=== PATIENT | male | born 1970 | race American Indian/Alaskan Native ===

== ENCOUNTER 2021-04-23 10:12 | Inpatient (IN) | payer OTHER, MEDICAID ==
[2021-04-23 11:47] LABS: Basophils % (Auto) 0.4 % (0.0-1.8); Eosinophils # (Auto) 0.3 K/mm3 (0.0-0.4); Eosinophils % (Auto) 2.7 % (0.0-4.3); Hematocrit 34.8 % (35.5-45.6); Hemoglobin 11.9 gm/dl (11.8-15.2); Lymphocytes # (Auto) 2.3 K/mm3 (1.2-5.4); Lymphocytes % (Auto) 20.4 % (13.4-35.0); Mean Corpuscular HGB Conc 34 % (32-34); Mean Corpuscular Volume 87 fl (84-94); Monocytes # (Auto) 0.9 K/mm3 (0.0-0.8); Monocytes % (Auto) 8.2 % (0.0-7.3); Platelet Count 255 K/mm3 (140-440); Red Blood Count 4.01 M/mm3 (3.65-5.03); Red Cell Distribution Width 18.5 % (13.2-15.2)
[2021-04-23 12:18] LABS: Albumin 4.7 g/dL (3.9-5); Calcium 8.9 mg/dL (8.4-10.2)
[2021-04-23] MEDS ORDERED: ASPIRIN 81 MG TAB CHEW PO ONE (12:31)
[2021-04-23 13:16] LABS: Chol/HDL Ratio 4.34 %
[2021-04-23] MEDS ORDERED: FAMOTIDINE 20 MG/2 ML INJ IV ONE (13:25)
--- NOTE | 2021-04-23 13:38 | Emergency Department Report ---
- General Chief complaint: Weakness Stated complaint: GENERAL WEAKNESS PUI?: No Source: EMS Mode of arrival: Stretcher Limitations: No Limitations - History of Present Illness Initial comments: Patient is a 50-year-old male history of end-stage renal disease on hemodialysis who presents emergency department with complaint of generalized weakness. Patient states that he recently had dialysis and during his dialysis session he became weak. He also had an episode of chest pain as well as shortness of breath. He denies any focal weakness. Severity scale (0 -10): 0 - Related Data Allergies Allergy/AdvReac Type Severity Reaction Status Date / Time acetaminophen [From Tylenol] Allergy Hives Verified 04/23/21 10:45 JHON Inhibitors AdvReac Hives Verified 04/23/21 10:46 ED Review of Systems ROS: Stated complaint: GENERAL WEAKNESS Other details as noted in HPI Constitutional: malaise Eyes: denies: eye pain ENT: denies: throat pain Respiratory: shortness of breath. denies: cough Cardiovascular: chest pain Endocrine: no symptoms reported Gastrointestinal: denies: abdominal pain, nausea, diarrhea Genitourinary: denies: urgency, dysuria Musculoskeletal: denies: back pain, joint swelling, arthralgia Skin: denies: rash, lesions Neurological: denies: headache, weakness, paresthesias Psychiatric: denies: anxiety, depression Hematological/Lymphatic: denies: easy bleeding, easy bruising ED Past Medical Hx - Past Medical History Hx Hypertension: Yes Hx Diabetes: Yes Hx Renal Disease: Yes (ESRD) Additional medical history: dialysis - Social History Smoking Status: Never Smoker Substance Use Type: None ED Physical Exam - General Limitations: No Limitations General appearance: alert, in no apparent distress - Head Head exam: Present: atraumatic, normocephalic - Eye Eye exam: Present: normal appearance - ENT ENT exam: Present: mucous membranes moist - Neck Neck exam: Present: normal inspection - Respiratory Respiratory exam: Present: normal lung sounds bilaterally. Absent: respiratory distress - Cardiovascular Cardiovascular Exam: Present: regular rate, normal rhythm, other (Patient's hemodialysis catheter noted and left chest wall). Absent: systolic murmur, diastolic murmur, rubs, gallop - GI/Abdominal GI/Abdominal exam: Present: soft, normal bowel sounds - Rectal Rectal exam: Present: deferred - Extremities Exam Extremities exam: Present: normal inspection - Back Exam Back exam: Present: normal inspection - Neurological Exam Neurological exam: Present: alert, oriented X3 - Psychiatric Psychiatric exam: Present: normal affect, normal mood - Skin Skin exam: Present: warm, dry, intact, normal color. Absent: rash ED Course Vital Signs 04/23/21 04/23/21 04/23/21 11:22 11:23 11:31 Pulse Rate 76 75 82 Respiratory 10 L 16 15 Rate Blood Pressure 120/69 Blood Pressure 118/62 [Right] O2 Sat by Pulse 86 95 96 Oximetry 04/23/21 04/23/21 04/23/21 11:45 12:01 12:15 Pulse Rate 75 80 71 Respiratory 13 17 12 Rate Blood Pressure 120/69 122/80 122/80 Blood Pressure [Right] O2 Sat by Pulse 95 96 96 Oximetry 04/23/21 04/23/21 04/23/21 12:31 12:45 13:01 Pulse Rate 91 H 73 73 Respiratory 13 13 15 Rate Blood Pressure 136/75 136/75 142/85 Blood Pressure [Right] O2 Sat by Pulse 97 97 Oximetry 04/23/21 04/23/21 04/23/21 13:15 13:31 13:45 Pulse Rate 77 84 77 Respiratory 13 39 H 17 Rate Blood Pressure 142/85 134/81 134/81 Blood Pressure [Right] O2 Sat by Pulse 97 98 Oximetry 04/23/21 04/23/21 04/23/21 14:01 14:15 14:31 Pulse Rate 75 75 74 Respiratory 13 18 18 Rate Blood Pressure 134/81 128/77 137/80 Blood Pressure [Right] O2 Sat by Pulse 99 99 Oximetry 04/23/21 04/23/21 04/23/21 14:49 15:01 15:15 Pulse Rate 71 70 73 Respiratory 17 12 12 Rate Blood Pressure 137/80 122/72 122/72 Blood Pressure [Right] O2 Sat by Pulse 96 95 94 Oximetry 04/23/21 04/23/21 04/23/21 15:31 15:45 16:01 Pulse Rate 74 71 80 Respiratory 12 13 9 L Rate Blood Pressure 119/61 119/61 128/51 Blood Pressure [Right] O2 Sat by Pulse 96 95 95 Oximetry 04/23/21 04/23/21 04/23/21 16:15 16:31 16:45 Pulse Rate 72 75 75 Respiratory 13 15 15 Rate Blood Pressure 128/51 110/59 110/59 Blood Pressure [Right] O2 Sat by Pulse 96 97 97 Oximetry 04/23/21 04/23/21 04/23/21 16:49 16:52 17:01 Pulse Rate 74 75 Respiratory 13 Rate Blood Pressure 134/70 Blood Pressure [Right] O2 Sat by Pulse 96 99 Oximetry 04/23/21 04/23/21 04/23/21 17:15 17:31 17:45 Pulse Rate 75 77 77 Respiratory 12 16 17 Rate Blood Pressure 134/70 127/79 127/79 Blood Pressure [Right] O2 Sat by Pulse 97 98 97 Oximetry 04/23/21 04/23/21 04/23/21 18:01 18:15 18:31 Pulse Rate 78 77 68 Respiratory 17 17 12 Rate Blood Pressure 124/57 124/57 113/65 Blood Pressure [Right] O2 Sat by Pulse 96 98 97 Oximetry 04/23/21 04/23/21 04/23/21 18:45 19:01 19:15 Pulse Rate 76 76 80 Respiratory 11 L 19 18 Rate Blood Pressure 113/65 149/50 149/50 Blood Pressure [Right] O2 Sat by Pulse 97 97 97 Oximetry 04/23/21 04/23/21 04/23/21 19:31 19:41 19:51 Pulse Rate 77 75 78 Respiratory 20 14 17 Rate Blood Pressure 136/50 136/50 136/50 Blood Pressure [Right] O2 Sat by Pulse 96 97 98 Oximetry 04/23/21 04/23/21 04/23/21 20:01 20:11 20:21 Pulse Rate 74 78 81 Respiratory 18 16 12 Rate Blood Pressure 140/87 140/87 140/87 Blood Pressure [Right] O2 Sat by Pulse 96 98 96 Oximetry 04/23/21 04/23/21 04/23/21 20:31 20:41 20:51 Pulse Rate 82 80 80 Respiratory 23 13 19 Rate Blood Pressure 111/91 111/91 111/91 Blood Pressure [Right] O2 Sat by Pulse 73 L 95 96 Oximetry 04/23/21 04/23/21 04/23/21 21:01 21:11 21:21 Pulse Rate 82 81 81 Respiratory 11 L 16 18 Rate Blood Pressure 125/60 125/60 125/60 Blood Pressure [Right] O2 Sat by Pulse 95 96 96 Oximetry 04/23/21 04/23/21 04/23/21 21:31 21:41 21:50 Pulse Rate 82 89 Respiratory 19 16 Rate Blood Pressure 120/81 120/81 120/81 Blood Pressure [Right] O2 Sat by Pulse 97 94 97 Oximetry 04/23/21 22:35 Pulse Rate 77 Respiratory Rate Blood Pressure Blood Pressure [Right] O2 Sat by Pulse 97 Oximetry - Reevaluation(s) Reevaluation #1: 04/23/21 13:36 Patient's troponin is noted to be elevated to 0.1. This could be secondary to patient's renal disease however given patient is endorsing chest pain patient likely to be admitted for further evaluation. ED Medical Decision Making - Lab Data Result diagrams: 04/23/21 14:32 04/23/21 11:27 - EKG Data -: EKG Interpreted by Me EKG shows normal: sinus rhythm No standard instances Voltage: C/W LVH T wave inversions noted in: v5, v6 Hyperacute T waves: III Qtc: prolonged - Medical Decision Making 50-year-old male here with complaints of generalized weakness in the setting of dialysis. Patient's work-up thus far does note an EKG that shows ST changes in inferior leads, T wave inversions in V5 and V6 and hyperacute T waves in lead III. Patient does have mildly elevated troponin on labs. Given his complaint of chest pain and EKG changes plan for admission for further evaluation. Critical care attestation.: If time is entered above; I have spent that time in minutes in the direct care of this critically ill patient, excluding procedure time. ED Disposition Clinical Impression: NSTEMI (non-ST elevated myocardial infarction) Disposition: ADMITTED INPATIENT Is pt being admited?: Yes Does the pt Need Aspirin: Yes Condition: Stable
[2021-04-23] MEDS ORDERED: HEPARIN 10,000 UNITS/10 ML VIAL IV PRN (14:01)
[2021-04-23] MEDS ORDERED: HEPARIN 10,000 UNITS/10 ML VIAL IV ONE (14:01)
[2021-04-23 14:56] LABS: Hematocrit 33.2 % (35.5-45.6); Hemoglobin 11.7 gm/dl (11.8-15.2)
--- NOTE | 2021-04-23 15:12 | Cat Scan Report ---
CT ABDOMEN AND PELVIS WITHOUT INTRAVENOUS CONTRAST INDICATION / CLINICAL INFORMATION: Generalized abdominal pain. TECHNIQUE: All CT scans at this location are performed using CT dose reduction for ALARA by means of automated exposure control. COMPARISON: None available. FINDINGS: ABDOMEN: The liver, spleen, gallbladder, bile ducts, pancreas, adrenal glands, kidneys and bowel demo nstrate no significant abnormality. There are mild atherosclerotic calcifications involving the abdom inal aorta and iliac arteries without aneurysm. No adenopathy is seen. There are mild patchy groundgl ass parenchymal opacities in the periphery of both lung bases. PELVIS: The distal ureters, urinary bladder, prostate gland and seminal vesicles are normal. The appe ndix is not identified. There is no evidence of diverticulitis. No abnormal mass or fluid collection is seen. There is a small fat-containing periumbilical hernia without complication. Moderate degenera tive changes are present at the lumbosacral junction. IMPRESSION: 1. No acute intra-abdominal disease is identified. 2. Mild patchy groundglass parenchymal opacities in both lung bases are nonspecific but could be rela angela to atypical causes of pneumonia. Signer Name: Laron Maria MD Signed: 04/23/2021 3:08 PM Workstation Name: [id number]
[2021-04-23 15:41] LABS: INR 0.9 (0.87-1.13)
[2021-04-23 15:42] LABS: Partial Thromboplastin Time 30.3 Sec. (24.2-36.6)
[2021-04-23] MEDS: HEPARIN/ 0.45% NACL DRIP 25,000 UNIT/500 ML BAG IV SCH (16:41)
[2021-04-23] MEDS ORDERED: METOCLOPRAMIDE 10 MG/2 ML INJ IV PRN ×2 (19:49→20:02)
[2021-04-23] MEDS ORDERED: ONDANSETRON 4 MG/2 ML INJ IV PRN (19:49)
[2021-04-23] MEDS ORDERED: MORPHINE 2 MG/1 ML INJ IV PRN (19:49)
[2021-04-23] MEDS ORDERED: ACETAMINOPHEN 325 MG TAB PO PRN (19:49)
[2021-04-23] MEDS ORDERED: HYDROmorphone 1 MG/1 ML INJ IV PRN (19:49)
--- NOTE | 2021-04-23 19:49 | History and Physical Report ---
History of Present Illness Date of examination: 04/23/21 Date of admission: c April 23, 2021 Chief complaint: Chest pain during dialysis History of present illness: 50-year-old male with a history of hypertension diabetes and cerebral disease comes in for chest pain which happened after 1 hour of dialysis. Hemodialysis after discharge. Patient comes in for evaluation of chest pain. Chest pain is retrosternal. Nonradiating. No shortness of breath. No diaphoresis. Patient has recently moved from [place] 6 months ago. Patient sees for his nephrology needs. Does not have any design architect. Slight shortness of breath present. But no orthopnea. - Past Medical History Hx Hypertension: Yes Hx Diabetes: Yes Hx Renal Disease: Yes (ESRD) Additional medical history: dialysis past surgical history left infraclavicular Vas-Cath - Social History Smoking Status: Never Smoker Substance Use Type: None Family history Htn Review of Systems ROS: Stated complaint: GENERAL WEAKNESS Other details as noted in HPI Constitutional: malaise Eyes: denies: eye pain ENT: denies: throat pain Respiratory: shortness of breath. denies: cough Cardiovascular: chest pain Endocrine: no symptoms reported Gastrointestinal: denies: abdominal pain, nausea, diarrhea Genitourinary: denies: urgency, dysuria Musculoskeletal: denies: back pain, joint swelling, arthralgia Skin: denies: rash, lesions Neurological: denies: headache, weakness, paresthesias Psychiatric: denies: anxiety, depression Hematological/Lymphatic: denies: easy bleeding, easy bruising Medications and Allergies Allergies Allergy/AdvReac Type Severity Reaction Status Date / Time acetaminophen [From Tylenol] Allergy Hives Verified 04/23/21 10:45 JHON Inhibitors AdvReac Hives Verified 04/23/21 10:46 Active Meds: Active Medications Heparin Sodium (Porcine) (Heparin 10,000 Units/10 Ml Vial) 5,000 unit IV Q6H PRN PRN Reason: Anti-Xa Assay < 0.1 units/ml Heparin Sodium/Sodium Chloride (Heparin/ 0.45% Nacl-25,000 Unit/500 Ml) 25,000 unit in 500 mls @ 20 mls/hr IV TITRATE ANGELA; Protocol Last Admin: 04/23/21 16:41 Dose: 1,000 units/hr, 20 mls/hr Exam - Constitutional Vitals: Temp Pulse Resp BP Pulse Ox 77 20 136/50 96 04/23/21 19:31 04/23/21 19:31 04/23/21 19:31 04/23/21 19:31 General appearance: Present: no acute distress, well-nourished - EENT Eyes: Present: PERRL ENT: hearing intact, clear oral mucosa - Neck Neck: Present: supple, normal ROM - Respiratory Respiratory effort: normal Respiratory: bilateral: CTA - Cardiovascular Heart rate: 78 Rhythm: regular Heart Sounds: Present: S1 & S2. Absent: rub, click - Extremities Extremities: pulses symmetrical, No edema Peripheral Pulses: within normal limits - Abdominal General gastrointestinal: Present: soft, non-tender, non-distended, normal bowel sounds Male genitourinary: Present: normal - Integumentary Integumentary: Present: clear, warm, dry - Musculoskeletal Musculoskeletal: gait normal, strength equal bilaterally - Psychiatric Psychiatric: appropriate mood/affect, intact judgment & insight - Neurologic Neurologic: CNII-XII intact, moves all extremities HEART Score - HEART Score History: Highly suspicious Risk factors: > 3 risk factors or hx of atherosclerotic disease Troponin: Troponin T 0.103 ng/mL (0.00-0.029) H* 04/23/21 14:32 Troponin: 1-3x normal limit - Critical Actions Critical Actions: 4-6 pts:12-16.6% risk of adverse cardiac event. Should be admitted Results - Labs CBC & Chem 7: 04/23/21 14:32 04/24/21 05:12 Labs: Laboratory Last Values WBC 11.3 K/mm3 (4.5-11.0) H 04/23/21 11:27 RBC 4.01 M/mm3 (3.65-5.03) 04/23/21 11:27 Hgb 11.7 gm/dl (11.8-15.2) L 04/23/21 14:32 Hct 33.2 % (35.5-45.6) L 04/23/21 14:32 MCV 87 fl (84-94) 04/23/21 11:27 MCH 30 pg (28-32) 04/23/21 11:27 MCHC 34 % (32-34) 04/23/21 11:27 RDW 18.5 % (13.2-15.2) H 04/23/21 11:27 Plt Count 244 K/mm3 (140-440) 04/23/21 14:32 Lymph % (Auto) 20.4 % (13.4-35.0) 04/23/21 11: Nolan % (Auto) 8.2 % (0.0-7.3) H 04/23/21 11: Eos % (Auto) 2.7 % (0.0-4.3) 04/23/21 11: Baso % (Auto) 0.4 % (0.0-1.8) 04/23/21 11: Lymph # (Auto) 2.3 K/mm3 (1.2-5.4) 04/23/21 11: Nolan # (Auto) 0.9 K/mm3 (0.0-0.8) H 04/23/21 11: Eos # (Auto) 0.3 K/mm3 (0.0-0.4) 04/23/21 11: Baso # (Auto) 0.0 K/mm3 (0.0-0.1) 04/23/21 11: Seg Neutrophils % 68.3 % (40.0-70.0) 04/23/21 11: Seg Neutrophils # 7.7 K/mm3 (1.8-7.7) 04/23/21 11: PT 13.1 Sec. (12.2-14.9) 04/23/21 14:32 INR 0.90 (0.87-1.13) 04/23/21 14:32 APTT 30.3 Sec. (24.2-36.6) 04/23/21 14:32 Sodium 137 mmol/L (137-145) 04/23/21 11:27 Potassium 4.9 mmol/L (3.6-5.0) 04/23/21 11: Chloride 95.5 mmol/L (98-107) L 04/23/21 11: Carbon Dioxide 27 mmol/L (22-30) 04/23/21 11:27 Anion Gap 19 mmol/L 04/23/21 11:27 BUN 31 mg/dL (9-20) H 04/23/21 11:27 Creatinine 4.9 mg/dL (0.8-1.3) H 04/23/21 11:27 Estimated GFR 13 ml/min 04/23/21 11:27 BUN/Creatinine Ratio 6 % 04/23/21 11:27 Glucose 141 mg/dL (75-100) H 04/23/21 11:27 Calcium 8.9 mg/dL (8.4-10.2) 04/23/21 11:27 Magnesium 1.90 mg/dL (1.7-2.3) 04/23/21 11:27 Total Bilirubin 0.30 mg/dL (0.1-1.2) 04/23/21 11:27 AST 36 units/L (5-40) 04/23/21 11:27 ALT 50 units/L (7-56) 04/23/21 11:27 Alkaline Phosphatase 101 units/L (35-129) 04/23/21 11:27 Troponin T 0.103 ng/mL (0.00-0.029) H* 04/23/21 14:32 Total Protein 8.0 g/dL (6.3-8.2) 04/23/21 11:27 Albumin 4.7 g/dL (3.9-5) 04/23/21 11:27 Albumin/Globulin Ratio 1.4 % 04/23/21 11:27 Triglycerides 243 mg/dL (2-149) H 04/23/21 11:27 Cholesterol 152 mg/dL (50-199) 04/23/21 11:27 LDL Cholesterol Direct 84 mg/dL (50-130) 04/23/21 11:27 HDL Cholesterol 35 mg/dL (40-59) L 04/23/21 11:27 Cholesterol/HDL Ratio 4.34 % 04/23/21 11:27 Short CBC 04/23/21 04/23/21 Range/Units 11:27 14:32 WBC 11.3 H (4.5-11.0) K/mm3 Hgb 11.9 11.7 L (11.8-15.2) gm/dl Hct 34.8 L 33.2 L (35.5-45.6) % Plt Count 255 244 (140-440) K/mm3 BMP 04/23/21 04/24/21 11:27 05:12 Sodium 137 139 Potassium 4.9 4.9 Chloride 95.5 L 98.0 Carbon Dioxide 27 23 BUN 31 H 43 H Creatinine 4.9 H 7.1 H Glucose 141 H 141 H Calcium 8.9 8.1 L Cardiac Enzymes 04/23/21 04/23/21 Range/Units 11:27 14:32 Troponin T 0.107 H* 0.103 H* (0.00-0.029) ng/mL Liver Function 04/23/21 04/24/21 Range/Units 11:27 05:12 Total Bilirubin 0.30 0.20 (0.1-1.2) mg/dL AST 36 32 (5-40) units/L ALT 50 41 (7-56) units/L Alkaline Phosphatase 101 91 (35-129) units/L Albumin 4.7 3.9 (3.9-5) g/dL Assessment and Plan Advance Directives: Yes (Full code) VTE prophylaxis?: Chemical Plan of care discussed with patient/family: Yes - Patient Problems (1) NSTEMI (non-ST elevated myocardial infarction) Current Visit: Yes Status: Acute Plan to address problem: Troponin is elevated . Started the patient on heparin drip Possible troponin leak also No EKG changes Cardiology consult requested Will defer to cardiology regarding Lexiscan versus cardiac cath (2) Hypertension Current Visit: Yes Status: Chronic Qualifiers: Hypertension type: primary hypertension Qualified Code(s): I10 - Essential (primary) hypertension Plan to address problem: Continue antihypertensives and adjust medications (3) ESRD on hemodialysis Current Visit: Yes Status: Chronic Plan to address problem: Nephrology consulted Patient had hemodialysis today for 1 hour (4) T2DM (type 2 diabetes mellitus) Current Visit: Yes Status: Chronic Qualifiers: Diabetes mellitus alf insulin use: unspecified therapy site coordinator insulin use status Plan to address problem: Coverage for now Check hemoglobin A1c (5) DVT prophylaxis Current Visit: Yes Status: Acute Plan to address problem: On heparin and GI prophylax this (6) Advance care planning Current Visit: Yes Status: Acute Plan to address problem: Disease education conducted, care plan discussed, diagnosis discussed, prognosis discussed. Patient is full code. Patient acknowledges understanding and agreement with care plan.
[2021-04-23] MEDS ORDERED: HEPARIN 5,000 UNIT/1 ML VIAL SUB-Q SCH (22:00)
[2021-04-24 06:22] LABS: Albumin 3.9 g/dL (3.9-5); Calcium 8.1 mg/dL (8.4-10.2)
[2021-04-24] MEDS ORDERED: REGADENOSON 0.4 MG/5 ML INJ IV ONE (07:22)
[2021-04-24] MEDS: INSULIN LISPRO 100 UNIT/ML SUB-Q SCH ×3 (07:30→16:54)
[2021-04-24] MEDS ORDERED: SODIUM CHLORIDE 0.9% 500 ML 500 ML IV SCH (09:00)
--- NOTE | 2021-04-24 09:08 | Consultation ---
History of Present Illness - Reason for Consult end stage renal disease - History of Present Illness Very pleasant 50-year-old -[place] male with a past medical history significant for end-stage renal disease in the setting of hypertension and diabetes, well-known to our clinic as he dialyzes at [facility], presented to the emergency department secondary to chest pain that occurred during his dialysis treatment. Patient states that with approximately 1 hour left in his treatment he started to complain of chest discomfort along with abdominal and leg cramping. Going over his chart it seems that he had gained about 5 kg above his dry weight prior to treatment start yesterday. Cardiology evaluation reviewed and patient is pending cardiac cath this morning. Labs are stable otherwise. Past History Past Medical History: diabetes, dialysis, ESRD, hypertension, hyperlipidemia, renal failure Past Surgical History: No surgical history Family history: no significant family history Medications and Allergies Allergies Allergy/AdvReac Type Severity Reaction Status Date / Time acetaminophen [From Tylenol] Allergy Hives Verified 04/23/21 10:45 JHON Inhibitors AdvReac Hives Verified 04/23/21 10:46 Active Meds: Active Medications Hydromorphone HCl (Hydromorphone 1 Mg/1 Ml Inj) 0.5 mg IV Q3H PRN PRN Reason: Pain , Severe (7-10) Heparin Sodium/Sodium Chloride (Heparin/ 0.45% Nacl-25,000 Unit/500 Ml) 25,000 unit in 500 mls @ 20 mls/hr IV TITRATE ANGELA; Protocol Last Titration: 04/24/21 07:03 Dose: 1,500 units/hr, 30 mls/hr Sodium Chloride (Nacl 0.9% 500 Ml) 500 mls @ 50 mls/hr IV DIRECT ANGELA Stop: 04/24/21 18:59 Insulin Human Lispro (Insulin Lispro 100 Unit/Ml) 0 unit SUB-Q ACHS ANGELA; Protocol Metoclopramide HCl (Metoclopramide 10 Mg/2 Ml Inj) 5 mg IV Q6H PRN PRN Reason: Nausea And Vomiting Morphine Sulfate (Morphine 2 Mg/1 Ml Inj) 2 mg IV Q4H PRN PRN Reason: Pain, Moderate (4-6) Ondansetron HCl (Ondansetron 4 Mg/2 Ml Inj) 4 mg IV Q8H PRN PRN Reason: Nausea And Vomiting Sodium Chloride (Sodium Chloride 0.9% 10 Ml Flush Syringe) 10 ml IV BID ANGELA Last Admin: 04/23/21 23:03 Dose: Not Given Sodium Chloride (Sodium Chloride 0.9% 10 Ml Flush Syringe) 10 ml IV PRN PRN PRN Reason: LINE FLUSH Review of Systems All systems: negative Constitutional: fatigue, weakness Exam - Vital Signs Vital signs: Vital Signs Pulse Resp Pulse Ox 76 10 L 86 04/23/21 11:22 04/23/21 11:22 04/23/21 11:22 - General Appearance General appearance: well-developed, appears stated age, obese EENT: ATNC Neck: Present: neck supple Respiratory: Clear to Ascultation Heart: regular Gastrointestinal: Present: normal Integumentary: no rash Neurologic: no focal deficit, alert and oriented x3 Musculoskeletal: Present: deferred Psychiatric: cooperative Results - Lab Results 04/23/21 14:32 04/24/21 05:12 Most recent lab results Calcium 8.1 mg/dL (8.4-10.2) L 04/24/21 05:12 Magnesium 1.90 mg/dL (1.7-2.3) 04/23/21 11:27 Assessment and Plan - Patient Problems (1) Chest pain Current Visit: Yes Status: Acute Plan to address problem: Cardiology evaluation reviewed. Pending cardiac cath evaluation this morning. (2) Fluid overload Current Visit: Yes Status: Acute Plan to address problem: Counseled patient on importance of appropriate fluid restrictions. Treatment sheets do indicate that he has been gaining at least 4 to 5 kg of fluid in between treatments this past week. Will attempt to do a sequential ultrafiltration treatment today after cardiac cath to optimize his volume status. He will otherwise be set up for a Tuesday//Tuesday inpatient hemodialysis schedule. (3) ESRD on hemodialysis Current Visit: Yes Status: Chronic Plan to address problem: We will place orders for sequential ultrafiltration treatment today and then transition him to a TTS inpatient HD schedule (4) Hypertension Current Visit: Yes Status: Chronic Qualifiers: Hypertension type: primary hypertension Qualified Code(s): I10 - Essential (primary) hypertension Plan to address problem: Monitor blood pressures on current regimen. (5) T2DM (type 2 diabetes mellitus) Current Visit: Yes Status: Chronic Qualifiers: Diabetes mellitus senior living insulin use: unspecified terminal clerk insulin use status Plan to address problem: Management per primary team.
--- NOTE | 2021-04-24 09:19 | Electrocardiograph Report ---
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
[2021-04-24] MEDS ORDERED: ALBUMIN HUMAN 25% (25 GM/100 ML) INJ IV PRN (10:00)
[2021-04-24] MEDS ORDERED: SODIUM CHLORIDE 0.9% 100 ML IV PRN (10:00)
[2021-04-24] MEDS ORDERED: ASPIRIN 325 MG TAB ONE (10:45)
[2021-04-24] MEDS ORDERED: HEPARIN/NS 5000 UNIT/500ML 1,000 ML IR ONE (10:51)
[2021-04-24] MEDS ORDERED: HEPARIN 10,000 UNITS/10 ML VIAL ONE (10:52)
[2021-04-24] MEDS ORDERED: LIDOCAINE (2%) 20 MG/1 ML VIAL 20 ML MDV INFILTRATI ONE ×2 (10:52→11:10)
[2021-04-24] MEDS ORDERED: VERAPAMIL 5 MG/2 ML INJ ONE (10:52)
[2021-04-24] MEDS ORDERED: fentaNYL 100 MCG/2 ML INJ ONE (10:52)
[2021-04-24] MEDS ORDERED: MIDAZOLAM 2 MG/2 ML INJ ONE (10:52)
[2021-04-24] MEDS ORDERED: NITROGLYCERIN SYRINGE 3 ML ONE (10:53)
[2021-04-24] MEDS ORDERED: MIDAZOLAM 2 MG/2 ML INJ IV ONE (11:07)
[2021-04-24] MEDS ORDERED: fentaNYL 100 MCG/2 ML INJ IV ONE (11:07)
[2021-04-24] MEDS ORDERED: HEPARIN 10,000 UNITS/10 ML VIAL ART-SHEATH ONE (11:13)
[2021-04-24] MEDS ORDERED: VERAPAMIL 5 MG/2 ML INJ ART-SHEATH ONE (11:13)
[2021-04-24] MEDS ORDERED: NITROGLYCERIN 600 MCG/3 ML SYRINGE ART-SHEATH ONE (11:13)
[2021-04-24] MEDS ORDERED: HYDROcodone/ACETAMINOPHEN 5-325 MG TAB PO PRN (11:25)
[2021-04-24] MEDS ORDERED: hydrALAZINE 20 MG/1 ML INJ ONE (11:29)
[2021-04-24] MEDS ORDERED: hydrALAZINE 20 MG/1 ML INJ IV ONE ×2 (11:33→11:49)
--- NOTE | 2021-04-24 11:55 | Cardiac Catherization Report ---
DATE OF SERVICE: 04/24/2021 LEFT HEART CATHETERIZATION CLINICAL INFORMATION: This is a 50-year-old male with morbid obesity, history of TIA, hypertension, end-stage renal disease, on hemodialysis for the last month, who presents with chest pain from hemodialysis center with abnormal troponin, being treated for a non-STEMI. He is here for left heart catheterization. Procedure was done with moderate sedation, started at 11:07 and finished at 11:26, 19 minutes of moderate sedation noted. DESCRIPTION OF PROCEDURE: Procedure was done via the right radial artery, sterile technique and local anesthesia. A 6-Irish radial sheath inserted and left system with JL4 catheter. Left main is large and patent, trifurcates into a large LAD with tykipzoe-jc-kncuen tortuosity. Diagonal 1 medium caliber vessel is patent. Ramus is a large caliber vessel with moderate tortuosity, patent. Circumflex, a large caliber vessel, goes to a large OM1 that is patent with moderate tortuosity. RCA engaged with JR4, a iageoc-en-megmw caliber with wujozfdy-fi-dfliec tortuosity, is patent. PDA, a vdhwn-no-mozgdy caliber vessel, is patent. LV gram done in WALT and ESPINOZA views shows normal LV function, EF 55-60%. LVEDP of 23 mmHg, LV is 146, aortic is 146/97. No gradient across the aortic valve on pullback. The 5-Irish catheters taken over guidewire. The 6-Irish radial sheath was discontinued. Radial band applied. No hematoma, no bleeding. SUMMARY: Normal coronaries, left main patent, LAD patent, ramus patent, circumflex patent, OM1 patent, RCA patent with zvcepjla-gb-bvqjhy tortuous vessels with normal LV function. Treat medically. Continue risk factor modification. TID: [id number] RECEIPT: [id number] YANETH/KALPANA
[2021-04-24] MEDS ORDERED: traMADol 50 MG TAB PO PRN (12:00)
--- NOTE | 2021-04-24 12:37 | Consultation ---
History of Present Illness Consult date: 04/24/21 Requesting physician: CHOLO GUTHRIE Consult reason: elevated troponin History of present illness: Patient is a 50-year-old male with a past medical history of end-stage renal disease on hemodialysis, possible CHF, hypertension, former smoker, diabetes who reported to the ED yesterday for complaint of chest pain that was occurring during his dialysis session. Patient reports that in the middle of his session he suddenly developed chest pain that he described as tightness and cramps. He also states that at the same time he developed cramps throughout his body and that was associated with some shortness of breath and some slight nausea. Patient was then transported to [facility] for further evaluation. At time of interview patient reports that his symptoms have subsided and that he is currently chest pain-free. Of note patient reports that he moved to this area several months ago from [place]. 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 He is unaware of his cardiac history. He is states he might have had CHF but is unsure. He denies any history of coronary artery disease. In the ED patient was found to have elevated troponins. Patient is previously known to our practice. Cardiology is consulted for elevated troponins Past History Past Medical History: diabetes, dialysis, ESRD, hypertension, hyperlipidemia, renal failure Past Surgical History: No surgical history Family history: CAD, diabetes Medications and Allergies Allergies Allergy/AdvReac Type Severity Reaction Status Date / Time acetaminophen [From Tylenol] Allergy Hives Verified 04/23/21 10:45 JHON Inhibitors AdvReac Hives Verified 04/23/21 10:46 Active Meds: Active Medications Hydrocodone Bitart/Acetaminophen (Hydrocodone/Acetaminophen 5-325 Mg Tab) 1 each PO Q4H PRN PRN Reason: Pain, Moderate (4-6) Albumin Human (Albumin Human 25% (25 Gm/100 Ml) Inj) 25 gm IV LILI PRN PRN Reason: Hypotension Aspirin (Aspirin 81 Mg Tab Chew) 81 mg PO QDAY ANGELA Atorvastatin Calcium (Atorvastatin 40 Mg Tab) 40 mg PO QHS ANGELA Hydromorphone HCl (Hydromorphone 1 Mg/1 Ml Inj) 0.5 mg IV Q3H PRN PRN Reason: Pain , Severe (7-10) Heparin Sodium/Sodium Chloride (Heparin/ 0.45% Nacl-25,000 Unit/500 Ml) 25,000 unit in 500 mls @ 20 mls/hr IV TITRATE ANGELA; Protocol Last Titration: 04/24/21 07:03 Dose: 1,500 units/hr, 30 mls/hr Sodium Chloride (Nacl 0.9% 500 Ml) 500 mls @ 50 mls/hr IV DIRECT ANGELA Stop: 04/24/21 18:59 Last Admin: 04/24/21 10:55 Dose: 150 mls Sodium Chloride (Nacl 0.9%) 100 mls @ 999 mls/hr IV LILI PRN PRN Reason: Hypotension Insulin Human Lispro (Insulin Lispro 100 Unit/Ml) 0 unit SUB-Q ACHS ANGELA; Protocol Metoclopramide HCl (Metoclopramide 10 Mg/2 Ml Inj) 5 mg IV Q6H PRN PRN Reason: Nausea And Vomiting Morphine Sulfate (Morphine 2 Mg/1 Ml Inj) 2 mg IV Q4H PRN PRN Reason: Pain, Moderate (4-6) Ondansetron HCl (Ondansetron 4 Mg/2 Ml Inj) 4 mg IV Q8H PRN PRN Reason: Nausea And Vomiting Sodium Chloride (Sodium Chloride 0.9% 10 Ml Flush Syringe) 10 ml IV BID ANGELA Last Admin: 04/23/21 23:03 Dose: Not Given Sodium Chloride (Sodium Chloride 0.9% 10 Ml Flush Syringe) 10 ml IV PRN PRN PRN Reason: LINE FLUSH Tramadol HCl (Tramadol 50 Mg Tab) 50 mg PO Q4H PRN PRN Reason: Pain, Mild (1-3) Review of Systems Constitutional: no weight loss, no weight gain, no fever, no chills Ears, nose, mouth and throat: no nasal discharge, no sinus pressure, no sinus pain Cardiovascular: chest pain, shortness of breath, no palpitations, no rapid/irregular heart beat, no edema, no syncope, no lightheadedness Respiratory: shortness of breath, no cough, no dyspnea on exertion Gastrointestinal: nausea, no abdominal pain, no vomiting Musculoskeletal: muscle cramps Integumentary: no rash, no pruritis, no redness Neurological: no tingling, no seizures, no syncope Psychiatric: no anxiety, no memory loss Endocrine: no cold intolerance, no heat intolerance Hematologic/Lymphatic: no easy bruising, no easy bleeding Physical Examination Vital Signs Pulse Resp Pulse Ox 76 10 L 86 04/23/21 11:22 04/23/21 11:22 04/23/21 11:22 General appearance: no acute distress HEENT: Positive: PERRL Neck: Positive: trachea midline Cardiac: Positive: Reg Rate and Rhythm Lungs: Positive: Normal Breath Sounds Neuro: Positive: Grossly Intact Abdomen: Positive: Soft, Active Bowel Sounds Skin: Negative: Rash, Suspicious Lesions, Ulceration Extremities: Present: upper extr. pulses. Absent: edema Results 04/23/21 14:32 04/24/21 05:12 Cardiac Enzymes 04/24/21 Range/Units 05:12 AST 32 (5-40) units/L Coagulation 04/23/21 Range/Units 14:32 PT 13.1 (12.2-14.9) Sec. INR 0.90 (0.87-1.13) APTT 30.3 (24.2-36.6) Sec. Lipids 04/23/21 Range/Units 11:27 Triglycerides 243 H (2-149) mg/dL Cholesterol 152 (50-199) mg/dL HDL Cholesterol 35 L (40-59) mg/dL Cholesterol/HDL Ratio 4.34 % CBC 04/23/21 Range/Units 14:32 Hgb 11.7 L (11.8-15.2) gm/dl Hct 33.2 L (35.5-45.6) % Plt Count 244 (140-440) K/mm3 Comprehensive Metabolic Panel 04/24/21 Range/Units 05:12 Sodium 139 (137-145) mmol/L Potassium 4.9 (3.6-5.0) mmol/L Chloride 98.0 (98-107) mmol/L Carbon Dioxide 23 (22-30) mmol/L BUN 43 H (9-20) mg/dL Creatinine 7.1 H (0.8-1.3) mg/dL Glucose 141 H (75-100) mg/dL Calcium 8.1 L (8.4-10.2) mg/dL AST 32 (5-40) units/L ALT 41 (7-56) units/L Alkaline Phosphatase 91 (35-129) units/L Total Protein 7.8 (6.3-8.2) g/dL Albumin 3.9 (3.9-5) g/dL - Imaging and Cardiology Echo: pending Cardiac cath: report reviewed EKG interpretations - Telemetry EKG Rhythm: Sinus Rhythm - EKG Sinus rhythms and dysrhythmias: sinus rhythm Chamber hypertrophy or enlargement: left ventricular hypertro Assessment and Plan Patient is a 50-year-old male with a past medical history of end-stage renal disease on hemodialysis, possible CHF, hypertension, diabetes who reported to the ED yesterday for complaint of chest pain that was occurring during his dialysis session. NSTEMI suspect type II End-stage renal disease on hemodialysis-nephrology following Hypertension Diabetes Cardiac cath 04/24/2021-normal coronaries. RCA patent with moderate to severe tortuous vessels with normal LV function. Recommend medical management Plan: EKG shows sinus rhythm 73 with LVH secondary to repolarization abnormality. Borderline ST elevation inferiorly Troponin noted to be elevated 0.1->0.1->0.096. Patient currently chest pain- free and Due to patient's complaint of chest pain, risk factors, and elevated troponins patient was scheduled for cardiac cath. Cardiac cath results show normal coronaries Suspect NSTEMI type II in setting of end-stage renal disease with missed hemodialysis session Will initiate aspirin and Lipitor 40 mg p.o. nightly Echo pending Patient cardiac status otherwise stable. Patient may be discharged from a cardiac point of view following hemodialysis session today Patient has a follow-up appointment with Dr. Chirinos, [facility] school psychology specialist, on 05/28/2021 at 9 AM in our [place] location. Phone #[phone] Patient seen in conjunction with Dr. Chirinos who agrees this plan of care - Patient Problems (1) Fluid overload Current Visit: Yes Status: Acute (2) NSTEMI (non-ST elevated myocardial infarction) Current Visit: Yes Status: Acute (3) ESRD on hemodialysis Current Visit: Yes Status: Chronic (4) Hypertension Current Visit: Yes Status: Chronic Qualifiers: Hypertension type: primary hypertension Qualified Code(s): I10 - Essential (primary) hypertension (5) T2DM (type 2 diabetes mellitus) Current Visit: Yes Status: Chronic Qualifiers: Diabetes mellitus longterm insulin use: unspecified longterm insulin use status
[2021-04-24 13:24] LABS: Hepatitis B Surface Antigen Non-Reactive (Negative); Hepatitis C Virus Antibody Non-Reactive (NonReactive)
--- NOTE | 2021-04-24 17:57 | Progress Note ---
Assessment and Plan Assessment and plan: (1) NSTEMI (non-ST elevated myocardial infarction) Cardiology evaluation noted s/p Heart cath normal coronaries, followed by hemodialysis today (2) Hypertension/moderate control Continue antihypertensives and adjust medications (3) ESRD on hemodialysis Nephrology following Hemodialysis per schedule (4) T2DM (type 2 diabetes mellitus) Accu-Chek sliding scale coverage ADA diet Insulin as needed Coverage for now Check hemoglobin A1c (5) DVT prophylaxis Current Visit: Yes Status: Acute On heparin and GI prophylax this (6) Advance care planning Current Visit: Yes Status: Acute Plan to address problem: Disease education conducted, care plan discussed, diagnosis discussed, prognosis discussed. Patient is full code. Patient acknowledges understanding and agreement with care plan. Closely monitor the patient Possible discharge home tomorrow if stable History Interval history: I have seen and examined the patient at the bedside Patient's chart and medications reviewed Patient underwent left heart catheterization, normal coronaries Patient is scheduled to have post-cath hemodialysis Patient denies any chest pain or shortness of breath Hospitalist Physical - Constitutional Vitals: Temp Pulse Resp BP Pulse Ox 98.0 F 108 H 20 142/80 95 04/24/21 16:44 04/24/21 16:44 04/24/21 16:44 04/24/21 16:44 04/24/21 16:44 General appearance: Present: no acute distress, well-nourished, obese (Morbidly obese) - EENT Eyes: Present: PERRL, EOM intact - Neck Neck: Present: supple, normal ROM - Respiratory Respiratory effort: normal Respiratory: bilateral: diminished, negative: rales, rhonchi, wheezing - Cardiovascular Rhythm: regular Heart Sounds: Present: S1 & S2 - Extremities Extremities: no ischemia, No edema - Abdominal General gastrointestinal: soft, non-tender, non-distended, normal bowel sounds - Integumentary Integumentary: Present: clear, warm - Psychiatric Psychiatric: appropriate mood/affect, cooperative - Neurologic Neurologic: CNII-XII intact, moves all extremities HEART Score - HEART Score Risk factors: > 3 risk factors or hx of atherosclerotic disease Troponin: Troponin T 0.096 ng/mL (0.00-0.029) H 04/24/21 05:12 Troponin: 1-3x normal limit - Critical Actions Critical Actions: 4-6 pts:12-16.6% risk of adverse cardiac event. Should be admitted Results - Labs CBC & Chem 7: 04/23/21 14:32 04/24/21 05:12 Labs: Laboratory Last Values WBC 11.3 K/mm3 (4.5-11.0) H 04/23/21 11: RBC 4.01 M/mm3 (3.65-5.03) 04/23/21 11: Hgb 11.7 gm/dl (11.8-15.2) L 04/23/21 14:32 Hct 33.2 % (35.5-45.6) L 04/23/21 14:32 MCV 87 fl (84-94) 04/23/21 11: MCH 30 pg (28-32) 04/23/21 11: MCHC 34 % (32-34) 04/23/21 11: RDW 18.5 % (13.2-15.2) H 04/23/21 11: Plt Count 244 K/mm3 (140-440) 04/23/21 14:32 Lymph % (Auto) 20.4 % (13.4-35.0) 04/23/21 11: [place] % (Auto) 8.2 % (0.0-7.3) H 04/23/21 11: Eos % (Auto) 2.7 % (0.0-4.3) 04/23/21 11: Baso % (Auto) 0.4 % (0.0-1.8) 04/23/21 11: Lymph # (Auto) 2.3 K/mm3 (1.2-5.4) 04/23/21 11: [place] # (Auto) 0.9 K/mm3 (0.0-0.8) H 04/23/21 11: Eos # (Auto) 0.3 K/mm3 (0.0-0.4) 04/23/21 11: Baso # (Auto) 0.0 K/mm3 (0.0-0.1) 04/23/21 11: Seg Neutrophils % 68.3 % (40.0-70.0) 04/23/21 11: Seg Neutrophils # 7.7 K/mm3 (1.8-7.7) 04/23/21 11:27 PT 13.1 Sec. (12.2-14.9) 04/23/21 14:32 INR 0.90 (0.87-1.13) 04/23/21 14:32 APTT 30.3 Sec. (24.2-36.6) 04/23/21 14:32 Heparin Anti-Xa Level 0.12 U.I./ml (0.3-0.7) L 04/24/21 12:22 Sodium 139 mmol/L (137-145) 04/24/21 05:12 Potassium 4.9 mmol/L (3.6-5.0) 04/24/21 05:12 Chloride 98.0 mmol/L (98-107) 04/24/21 05:12 Carbon Dioxide 23 mmol/L (22-30) 04/24/21 05:12 Anion Gap 23 mmol/L 04/24/21 05:12 BUN 43 mg/dL (9-20) H 04/24/21 05:12 Creatinine 7.1 mg/dL (0.8-1.3) H 04/24/21 05:12 Estimated GFR 10 ml/min 04/24/21 05:12 BUN/Creatinine Ratio 6 % 04/24/21 05:12 Glucose 141 mg/dL (75-100) H 04/24/21 05:12 POC Glucose 133 mg/dL (70-105) H 04/24/21 16:20 Calcium 8.1 mg/dL (8.4-10.2) L 04/24/21 05:12 Magnesium 1.90 mg/dL (1.7-2.3) 04/23/21 11:27 Total Bilirubin 0.20 mg/dL (0.1-1.2) 04/24/21 05:12 AST 32 units/L (5-40) 04/24/21 05:12 ALT 41 units/L (7-56) 04/24/21 05:12 Alkaline Phosphatase 91 units/L (35-129) 04/24/21 05:12 Troponin T 0.096 ng/mL (0.00-0.029) H 04/24/21 05:12 Total Protein 7.8 g/dL (6.3-8.2) 04/24/21 05:12 Albumin 3.9 g/dL (3.9-5) 04/24/21 05:12 Albumin/Globulin Ratio 1.0 % 04/24/21 05:12 Triglycerides 243 mg/dL (2-149) H 04/23/21 11: Cholesterol 152 mg/dL (50-199) 04/23/21 11: LDL Cholesterol Direct 84 mg/dL (50-130) 04/23/21 11: HDL Cholesterol 35 mg/dL (40-59) L 04/23/21 11: Cholesterol/HDL Ratio 4.34 % 04/23/21 11:27 Hepatitis A IgM Ab Non-reactive (NonReactive) 04/24/21 12: Hep Bs Antigen Non-reactive (Negative) 04/24/21 12: Hep B Core IgM Ab Non-reactive (NonReactive) 04/24/21 12: Hepatitis C Antibody Non-reactive (NonReactive) 04/24/21 12: Active Medications - Current Medications Current Medications: Generic Name Dose Route Start Last Admin Trade Name Freq PRN Reason Stop Dose Admin Albumin Human 25 gm 04/24/21 10:00 Albumin Human 25% (25 Gm/100 Ml) Inj IV LILI PRN Hypotension Aspirin 81 mg 04/25/21 10:00 Aspirin 81 Mg Tab Chew PO QDAY ANGELA Atorvastatin Calcium 40 mg 04/24/21 22:00 Atorvastatin 40 Mg Tab PO QHS ANGELA Hydromorphone HCl 0.5 mg 04/23/21 19:49 Hydromorphone 1 Mg/1 Ml Inj IV Q3H PRN Pain , Severe (7-10) Heparin Sodium/Sodium Chloride 25,000 unit in 500 mls @ 20 mls/hr 04/23/21 15:00 04/24/21 07:03 Heparin/ 0.45% Nacl-25,000 Unit/500 Ml IV 1,500 units/hr TITRATE ANGELA 30 mls/hr Titration Protocol 1,000 UNITS/HR Sodium Chloride 500 mls @ 50 mls/hr 04/24/21 09:00 04/24/21 10:55 Nacl 0.9% 500 Ml IV 04/24/21 18:59 150 mls DIRECT ANGELA Administration Sodium Chloride 100 mls @ 999 mls/hr 04/24/21 10:00 Nacl 0.9% IV LILI PRN Hypotension Insulin Human Lispro 0 unit 04/24/21 07:30 04/24/21 16:54 Insulin Lispro 100 Unit/Ml SUB-Q Not Given ACHS ANGELA Protocol Metoclopramide HCl 5 mg 04/23/21 20:02 Metoclopramide 10 Mg/2 Ml Inj IV Q6H PRN Nausea And Vomiting Morphine Sulfate 2 mg 04/23/21 19:49 Morphine 2 Mg/1 Ml Inj IV Q4H PRN Pain, Moderate (4-6) Ondansetron HCl 4 mg 04/23/21 19:49 Ondansetron 4 Mg/2 Ml Inj IV Q8H PRN Nausea And Vomiting Sodium Chloride 10 ml 04/23/21 22:00 04/23/21 23:03 Sodium Chloride 0.9% 10 Ml Flush Syringe IV Not Given BID [facility] Sodium Chloride 10 ml 04/23/21 19:49 Sodium Chloride 0.9% 10 Ml Flush Syringe IV PRN PRN LINE FLUSH Tramadol HCl 50 mg 04/24/21 12:00 Tramadol 50 Mg Tab PO Q4H PRN Pain, Mild (1-3)
[2021-04-24] MEDS: HEPARIN/ 0.45% NACL DRIP 25,000 UNIT/500 ML BAG IV SCH (18:17)
--- NOTE | 2021-04-24 18:31 | Discharge Summary ---
Providers - Providers Date of Admission: 04/24/21 15:00 Date of discharge: 04/24/21 Attending physician: VELASQUEZ PUGA 04/23/21 19:54 Consult to Physician [CONS] Routine Comment: Consulting Provider: SANDIE TOLENTINO Physician Instructions: Reason For Exam: End-stage renal disease with hemodialysis 04/24/21 07:22 Consult to Physician [CONS] Routine Comment: Consulting Provider: LILY CHIRINOS Physician Instructions: Reason For Exam: Elevated troponin 04/24/21 11:25 Consult to Cardiac Rehabilitation [CONS] Routine Reason For Exam: Cardiac Rehab Evaluation Hospitalization Reason for admission: Chest pain during dialysis Condition: Stable Pertinent studies: CT abdomen and pelvis Echocardiogram Procedures: Cardiac cath 04/24/2021-normal coronaries. RCA patent with moderate to severe tortuous vessels with normal LV function. Recommend medical management Hospital course: -- NSTEMI (non-ST elevated myocardial infarction) Cardiology evaluation noted s/p Heart cath normal coronaries, followed by hemodialysis today -- Hypertension/moderate control Continue antihypertensives and adjust medications -- ESRD on hemodialysis Nephrology following HD post cath today Hemodialysis per schedule --T2DM (type 2 diabetes mellitus) Accu-Chek sliding scale coverage ADA diet Insulin as needed Coverage for now Check hemoglobin A1c --Morbid obesity; BMI 50.9 -- DVT prophylaxis On heparin and GI prophylax this Non-ST elevation SD Heart cath negative Disposition: 01 HOME / SELF CARE / HOMELESS Final Discharge Diagnosis (Prints w/discharge instructions): Non-ST elevation SD. Heart cath negative. Hypertension moderate control. ESRD on hemodialysis. Hyperglycemia type 2 diabetes mellitus[diet controlled]. Morbid obesity; BMI 50.9. Dyslipidemia Time spent for discharge: 35 min Exam - Constitutional Vitals: Temp Pulse Resp BP Pulse Ox 98.0 F 108 H 20 142/80 95 04/24/21 16:44 04/24/21 16:44 04/24/21 16:44 04/24/21 16:44 04/24/21 16:44 Plan Activity: no restrictions Diet: diabetic, renal Additional Instructions: Follow renal/hemodialysis per schedule. If you have worsening symptoms contact MD or go to the nearest emergency room as needed. Follow-up primary care physician in 3 to 5 days, private senior storage engineer per schedule. Advised dietary modification, exercise as tolerated and weight reduction when you are medically stable. Follow with Dr. Chirinos, [facility] environmental remediation specialist, on 05/28/2021 at 9 AM in our [place] location. Phone #[phone] Follow up with: RAJAN PAYNE [Other] - 3-5 Days LILY CHIRINOS MD [Staff Physician] - 05/28/21 9:00 am Prescriptions: hydrALAZINE [Apresoline TAB] 25 mg PO BID #60 tab Aspirin [Aspirin BABY CHEW TAB] 81 mg PO QDAY #30 tab.chew AtorvaSTATin [Lipitor] 40 mg PO QHS #30 tablet
[2021-04-24 20:19] VITALS: BP 144/84
[2021-04-25] MEDS ORDERED: ASPIRIN 81 MG TAB CHEW PO SCH (10:00)
--- NOTE | 2021-04-25 10:04 | Electrocardiograph Report ---
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
== END 2021-04-24 19:58 | disposition home or self-care (01) | DRG 280 ==
LOC: ED 10:12 → 4A 19:49 → OBSVTOIN 04-24 15:00
PROVIDERS: ADMIT Internal Medicine; ATTEND Internal Medicine
PROC: 4A023N7 Measurement of Cardiac Sampling and Pressure, Left Heart, Percutaneous Approach (ICD-10-PCS; principal; 2021-04-24)
PROC: B2111ZZ Fluoroscopy of Multiple Coronary Arteries using Low Osmolar Contrast (ICD-10-PCS; 2021-04-24)
PROC: B2151ZZ Fluoroscopy of Left Heart using Low Osmolar Contrast (ICD-10-PCS; 2021-04-24)
PROC: 5A1D70Z Performance of Urinary Filtration, Intermittent, Less than 6 Hours Per Day (ICD-10-PCS; 2021-04-24)
DX: I21.4 Non-ST elevation (NSTEMI) myocardial infarction (principal); N18.6 End stage renal disease; I12.0 Hypertensive chronic kidney disease with stage 5 chronic kidney disease or end stage renal disease; Z68.43 Body mass index [BMI] 50.0-59.9, adult; Z99.2 Dependence on renal dialysis; E11.22 Type 2 diabetes mellitus with diabetic chronic kidney disease; E66.01 Morbid (severe) obesity due to excess calories; Z86.73 Personal history of transient ischemic attack (TIA), and cerebral infarction without residual deficits; E78.5 Hyperlipidemia, unspecified; E87.70 Fluid overload, unspecified; Z83.3 Family history of diabetes mellitus; Z82.49 Family history of ischemic heart disease and other diseases of the circulatory system; Z87.891 Personal history of nicotine dependence; Z88.8 Allergy status to other drugs, medicaments and biological substances
CPT/HCPCS: 36415; 74176; 80053; 80061; 80074; 82962; 83735; 84484; 85014; 85018; 85025; 85049; 85520; 85610; 85730; 93005; 93306; 93458; G0378; J1815; J3490; C1894; C8929; J0360; J1644; J2250; J3010; J7040; P9047; Q9967